=== PATIENT | female | born 1950 | race Caucasian/White ===

== ENCOUNTER 2022-08-26 14:22 | Day surgery (SDC) | payer MEDICARE, BC ==
[2022-08-19 12:04] LABS: BASOPHILS # (AUTO) 0.1 X10'3 (0-0.2); BASOPHILS % (AUTO) 0.7 % (0-1); EOSINOPHILS # (AUTO) 0.1 X10'3 (0-0.9); EOSINOPHILS % (AUTO) 1.5 % (0-6); HEMATOCRIT 40.1 % (35.0-45.0); HEMOGLOBIN 13.3 g/dl (12.0-16.0); LYMPHOCYTES # (AUTO) 2.5 X10'3 (1.1-4.8); MEAN CORPUSCULAR HEMOGLOBIN 31.8 PG (27.0-31.0); MEAN CORPUSCULAR HGB CONC 33.1 g/dL (33.0-36.5); MEAN CORPUSCULAR VOLUME 96.2 FL (78-98); MONOCYTES # (AUTO) 0.8 X10'3 (0-0.9); MONOCYTES % (AUTO) 10.2 % (2-12); NEUTROPHILS # (AUTO) 4.1 X10'3 (1.8-7.7); NEUTROPHILS % (AUTO) 54.6 % (42-75); PLATELET COUNT 269 X10'3 (140-440); RED BLOOD COUNT 4.17 X10'6 (4.20-5.60); RED CELL DISTRIBUTION WIDTH 12.9 % (11.5-14.5); WHITE BLOOD COUNT 7.4 X10'3 (4.5-11.0)
[2022-08-19 13:05] LABS: APTT 27 SECONDS (22-32)
[2022-08-19 13:24] LABS: ALBUMIN 3.7 G/DL (3.4-5.0); BLOOD UREA NITROGEN 22 MG/DL (7-18); BUN/CREATININE RATIO 26.8 (6.6-38.0); CALCIUM 9.3 MG/DL (8.5-10.1); CHLORIDE 104 MMOL/L (99-107); CREATININE 0.82 MG/DL (0.40-0.90); GLUCOSE 80 MG/DL (70-104); eGFR 68 ML/MIN
[2022-08-19 14:23] LABS: ANION GAP 6 (8-16); POTASSIUM 3.9 MMOL/L (3.5-5.1); SODIUM 139 MMOL/L (135-145)
[~2022-08-26] VITALS: Ht 160 cm; Wt 63.3 kg
[2022-08-26 14:39] VITALS: BP 133/78
[2022-08-26] MEDS ORDERED: diphenhydrAMINE 25mg capsule PO PRN (14:40)
[2022-08-26] MEDS ORDERED: LORazepam 0.5 MG tablet PO PRN (14:40)
[2022-08-26] MEDS ORDERED: normal saline 1,000 ML IV SCH (14:40)
[2022-08-26] MEDS ORDERED: MULT-227 PO (14:49)
[2022-08-26] MEDS ORDERED: CLOP75TA34 PO (14:49)
[2022-08-26] MEDS ORDERED: LEVO100T9 PO (14:49)
[2022-08-26] MEDS ORDERED: DULO60CA65 PO (14:49)
[2022-08-26] MEDS ORDERED: OMEG-5 PO (14:49)
[2022-08-26] MEDS ORDERED: ASPI81TA52 PO (14:49)
[2022-08-26] MEDS ORDERED: LOSA100T57 PO (14:49)
[2022-08-26] MEDS ORDERED: phenylephrine 10mg/ml inj. -priapism dosing ONE (17:19)
[2022-08-26] MEDS ORDERED: DOPamine 400mg/D5W 250ml 0 ML IV ONE (17:19)
[2022-08-26] MEDS ORDERED: atropine 0.1mg/ml 10ml syringe ONE (17:20)
[2022-08-26] MEDS ORDERED: LIDOcaine 1% 30ml preserv. free vial ONE (17:20)
[2022-08-26] MEDS ORDERED: iohexol 350MG/ML 100ml bottle IV ONE (17:20)
[2022-08-26] MEDS ORDERED: heparin 1,000unit/ml 10ml vial 0 ML ONE (17:20)
[2022-08-26] MEDS ORDERED: heparin 1,000 UNITS/NS 500ml 1,500 ML ONE (17:20)
[2022-09-04] MEDS ORDERED: GLUC1CAP33 PO (16:15)
[2022-09-04] MEDS ORDERED: CALC600T22 PO (16:15)
[2022-09-04] MEDS ORDERED: BIOT10004 PO (16:15)
[2022-09-04] MEDS ORDERED: TURM500C4 PO (16:15)
[2022-09-04] MEDS ORDERED: NIAC500C12 PO (16:15)
== END 2022-08-26 18:45 | disposition home or self-care (01) ==
LOC: SSTAY O 14:22
PROVIDERS: ATTEND Student in an Organized Health Care Education/Training Program
DX: I65.23 Occlusion and stenosis of bilateral carotid arteries (principal); Z53.8 Procedure and treatment not carried out for other reasons; I10 Essential (primary) hypertension; E03.9 Hypothyroidism, unspecified; Z79.82 Long term (current) use of aspirin; Z79.899 Other long term (current) drug therapy; Z79.890 Hormone replacement therapy; Z90.710 Acquired absence of both cervix and uterus; Z98.890 Other specified postprocedural states; Z87.891 Personal history of nicotine dependence
CPT/HCPCS: 36415; 80048; 85025; 85610; 85730; 93005; J1644; J3490; J7030; Q0163; Q9967; J0461; J1265; J2370